=== PATIENT | female | born 1960 | race Two or more races ===

== ENCOUNTER 2024-11-01 07:53 | Emergency (ER) | payer OTHER ==
[~2024-11-01] VITALS: Ht 152.4 cm; Wt 68.2 kg
[2024-11-01 07:58] VITALS: TEMP 97.9
[2024-11-01] MEDS ORDERED: RIZA10TA42 PO (08:10)
[2024-11-01] MEDS ORDERED: HYDR-4527 PO (08:10)
[2024-11-01] MEDS ORDERED: NAPR-1197 PO (08:10)
[2024-11-01] MEDS ORDERED: SERT-162 PO (08:10)
[2024-11-01] MEDS ORDERED: PROP10TA73 PO (08:10)
[2024-11-01] MEDS ORDERED: BUPR-514 PO (08:10)
[2024-11-01] MEDS ORDERED: estradiol cream VG (08:10)
[2024-11-01] MEDS ORDERED: AMLO-257 PO (08:10)
[2024-11-01] MEDS ORDERED: OMEP20 PO (08:10)
[2024-11-01 08:32] LABS: BASOPHILS % (AUTO) 0.6 % (0.0-2.0); EOSINOPHILS % (AUTO) 4.2 % (1.0-6.0); HEMATOCRIT 40.8 % (36-46); HEMOGLOBIN 14.1 g/dL (12.0-16.0); LYMPHOCYTES # (AUTO) 3.1 K/uL (1.0-4.8); LYMPHOCYTES % (AUTO) 39.7 % (22.0-44.0); MEAN CORPUSCULAR HEMOGLOBIN 32.7 pg (26.0-34.0); MEAN CORPUSCULAR HGB CONC 34.7 G/dL (31.0-37.0); MEAN CORPUSCULAR VOLUME 94 fL (80-100); MONOCYTES # (AUTO) 0.5 K/uL (0.1-1.0); MONOCYTES % (AUTO) 6.2 % (2.0-9.0); NEUTROPHILS # (AUTO) 3.8 K/uL (1.8-7.7); NEUTROPHILS % (AUTO) 49.3 % (40.0-70.0); PLATELET COUNT (AUTO) 365 K/uL (150-450); RED BLOOD CELL COUNT(AUTO) 4.33 MIL/uL (4.00-5.20); RED CELL DISTRIBUTION WIDTH 13.3 % (11.5-14.5); WHITE BLOOD COUNT (AUTO) 7.7 K/uL (4.5-11.0)
[2024-11-01 08:49] LABS: ANION GAP 10 mmol/L (8-16); CALCIUM, TOTAL 8.7 mg/dL (8.8-10.5); CARBON DIOXIDE 26 mmol/L (22-29); CHLORIDE 105 mmol/L (98-107); CREATININE 0.91 mg/dL (0.60-1.30); GLOMERULAR FILTR. RATE CALC > 60 mL/min (>60); GLUCOSE,RANDOM 137 mg/dL (70-110); POTASSIUM 4.3 mmol/L (3.5-5.1); SODIUM SERUM 141 mmol/L (136-145); UREA NITROGEN, BLOOD 16 mg/dL (7-18)
[2024-11-01 08:55] LABS: B-TYPE NATRIURETIC PEPTIDE 12 pg/mL (0-100); TROPONIN I-HIGH SENSITIVITY Less Than 4 ng/L (<51)
[2024-11-01 09:03] LABS: COVID AG,FIA SOURCE NASAL SWAB
[2024-11-01 09:17] LABS: APPEARANCE,URINE HAZY (CLEAR); BILIRUBIN,URINE NEGATIVE (NEGATIVE); COLOR,URINE YELLOW (YELLOW); GLUCOSE, URINE (UA) NEGATIVE (NEGATIVE); KETONES,URINE NEGATIVE (NEGATIVE); LEUKOCYTE ESTERASE ,URINE LARGE (NEGATIVE); NITRATE,URINE NEGATIVE (NEGATIVE); OCCULT BLOOD,URINE NEGATIVE (NEGATIVE); PROTEIN,URINE NEGATIVE (NEGATIVE); SPECIFIC GRAVITIY, URINE 1.014 (1.003-1.030); UROBILINOGEN,URINE <=1.0 mg/dL (<=1.0)
[2024-11-01 09:23] LABS: SARS-COV2 (COVID) ANTIGEN,FIA Negative (Negative)
[2024-11-01 09:24] LABS: INFLUENZA TYPE A NEGATIVE FOR TYPE A (NEGATIVE); INFLUENZA TYPE B NEGATIVE FOR TYPE B (NEGATIVE)
[2024-11-01 09:27] LABS: BACTERIA,URINE Few /HPF (None Seen); RBC,URINE None Seen /HPF (0-2); SQUAMOUS EPITHELIAL CELL,UR Few /LPF (None Seen)
[2024-11-01] MEDS ORDERED: CEFD300C18 PO (09:41)
[2024-11-01 09:45] VITALS: BP 121/74; PULSE 77; RESP 18; O2SAT 96
[2024-11-01] MEDS: CEFDINIR 300 MG CAPSULE PO ONE (10:09)
[2024-11-01] MEDS: OxyCODONE HCL/ACETAMINOPHEN 5-325 MG TABLET PO ONE (10:25)
== END 2024-11-01 10:36 | disposition home or self-care (01) ==
LOC: EMS 08:05
DX: S29.011A Strain of muscle and tendon of front wall of thorax, initial encounter (principal); N39.0 Urinary tract infection, site not specified; B97.89 Other viral agents as the cause of diseases classified elsewhere; I10 Essential (primary) hypertension; Z88.0 Allergy status to penicillin; Z20.822 Contact with and (suspected) exposure to COVID-19; X58.XXXA Exposure to other specified factors, initial encounter; Y93.89 Activity, other specified; Y92.89 Other specified places as the place of occurrence of the external cause; Y99.8 Other external cause status
CPT/HCPCS: 71045; 80048; 81001; 83880; 84484; 85025; 85379; 87086; 87804; 93005; 99285; 36415-L1; 36415-TC